=== PATIENT | female | born 1970 | race Two or more races ===

== ENCOUNTER 2023-03-14 15:17 | Emergency (ER) | payer OTHER ==
[~2023-03-14] VITALS: Ht 162.6 cm; Wt 64.0 kg
[2023-03-14 16:52] VITALS: BP 123/68; PULSE 68; RESP 16; TEMP 98.4; O2SAT 96
== END 2023-03-14 17:05 | disposition home or self-care (01) ==
LOC: ER 15:17 → EDBD 15:17 → ER 16:53
DX: R42 Dizziness and giddiness (principal)
CPT/HCPCS: 93005